=== PATIENT | female | born 1950 | race Two or more races ===

== ENCOUNTER 2021-04-06 08:15 | Inpatient (IN) | payer OTHER ==
[~2021-04-06] VITALS: Ht 162.6 cm; Wt 67.1 kg
[2021-04-06] MEDS ORDERED: ATENOL PO (10:43)
[2021-04-06] MEDS ORDERED: METFORMIN PO (10:44)
[2021-04-06] MEDS ORDERED: PANTO PO (10:44)
[2021-04-08] MEDS ORDERED: KETOROLAC TROMET5 M1 (07:54)
[2021-04-08] MEDS ORDERED: METFORMIN HCL500 M4 (07:54)
[2021-04-08] MEDS ORDERED: PREDNISOLONE ACE5 ML (07:54)
[2021-04-08] MEDS ORDERED: TENORMIN25 MG (07:55)
[2021-04-08] MEDS ORDERED: PANTOPRAZOLE SO20 MG (07:56)
== END 2021-04-10 10:02 | disposition home or self-care (01) | DRG 743 ==
LOC: O/R 04-08 06:28 → SURH 04-08 08:15 → OB/GYN 04-09 13:01
PROVIDERS: ADMIT Obstetrics & Gynecology Gynecologic Oncology; ATTEND Obstetrics & Gynecology Gynecologic Oncology
PROC: 0UT24ZZ Resection of Bilateral Ovaries, Percutaneous Endoscopic Approach (ICD-10-PCS; 2021-04-08)
PROC: 0UT74ZZ Resection of Bilateral Fallopian Tubes, Percutaneous Endoscopic Approach (ICD-10-PCS; 2021-04-08)
PROC: 07BC4ZZ Excision of Pelvis Lymphatic, Percutaneous Endoscopic Approach (ICD-10-PCS; 2021-04-08)
PROC: 0UT94ZZ Resection of Uterus, Percutaneous Endoscopic Approach (ICD-10-PCS; principal; 2021-04-08 17:00)
DX: D27.0 Benign neoplasm of right ovary (principal); D28.2 Benign neoplasm of uterine tubes and ligaments; N80.0 Endometriosis of uterus; N80.1 Endometriosis of ovary; N72 Inflammatory disease of cervix uteri; N83.8 Other noninflammatory disorders of ovary, fallopian tube and broad ligament; D36.0 Benign neoplasm of lymph nodes; R74.02 Elevation of levels of lactic acid dehydrogenase [LDH]; I10 Essential (primary) hypertension; E11.9 Type 2 diabetes mellitus without complications